=== PATIENT | male | born 1925 ===

== ENCOUNTER 2016-08-19 22:24 | Inpatient (IN) | payer MEDICARE, OTHER ==
[2016-08-19 22:24] VITALS: BMI 22.6
--- NOTE | 2016-08-19 23:52 | C.PDOC ---
History Of Present Illness Patient presents to the ER with a complaint of abdominal pain, nausea and vomiting since this afternoon. Daughter is at bedside. Denies fever, chills, chest pain or palpitations. Time Seen by Provider: 08/19/16 23:51 Chief Complaint (Nursing): Abdominal Pain History Per: Patient History/Exam Limitations: no limitations Onset/Duration Of Symptoms: Hrs Current Symptoms Are (Timing): Still Present Severity: Moderate Pain Scale Rating Of: 4 Location Of Pain/Discomfort: Diffuse Radiation Of Pain To:: None Quality Of Discomfort: Unable To Describe Associated Symptoms: Nausea, Vomiting. denies: Fever, Chills, Chest Pain, Other (Palpitations) Exacerbating Factors: None Alleviating Factors: None Recent travel outside of the [place]: No Past Medical History Reviewed: Historical Data, Nursing Documentation, Vital Signs Vital Signs: Last Vital Signs Temp 98.4 F 08/19/16 23:16 Pulse 57 L 08/19/16 23:16 Resp 20 08/19/16 23:16 BP 191/73 H 08/19/16 23:16 Pulse Ox 98 08/20/16 03:09 - Medical History PMH: Colonic Polyps, Diabetes, Emphysema, HTN, Hypercholesterolemia, Hypothyroidism, Chronic Kidney Disease (Renal insufficiency) Surgical History: Appendectomy, CABG (Triple Bypass in 1995), Endoscopy - [facility] Procedures ANGIOPLASTY OF OTHER NON-CORONARY VESSEL(S) (09/15/14) ATHERECTOMY OF OTHER NON-CORONARY VESSEL(S) (09/15/14) CLOSED ENDOSCOPIC BIOPSY OF LARGE INTESTINE (07/21/13) CONTRAST AORTOGRAM (09/15/14) CONTRAST ARTERIOGRAM-LEG (09/15/14) ESOPHAGOGASTRODUODENOSCOPY [EGD] W/CLOSED BIOPSY (09/15/14) INSEJ OF DRUG-ELUTING STENT(S) OF OTH PERIPHERAL VESSEL(S) (09/15/14) INSERT GASTRIC TUBE NEC (09/15/14) INSERTION OF ONE VASCULAR STENT (09/15/14) LOC EXC BONE LESION NEC (09/26/14) PACKED CELL TRANSFUSION (09/26/14) PROCEDURE ON SINGLE VESSEL (09/15/14) Family History: States: No Known Family Hx - Social History Hx Tobacco Use: No Hx Alcohol Use: No (quit at 64y/o) Hx Substance Use: No - Immunization History Hx Tetanus Toxoid Vaccination: Yes Hx Influenza Vaccination: Yes Hx Pneumococcal Vaccination: Yes Review Of Systems Constitutional: Negative for: Fever, Chills Cardiovascular: Negative for: Chest Pain, Palpitations Respiratory: Negative for: Cough, Shortness of Breath Gastrointestinal: Positive for: Nausea, Vomiting Genitourinary: Negative for: Dysuria, Incontinence, Hematuria Musculoskeletal: Negative for: Back Pain Skin: Negative for: Rash, Jaundice Physical Exam - Physical Exam Appears: Non-toxic Skin: Warm, Dry Oral Mucosa: Dry Throat: Normal, No Erythema, No Exudate Neck: Normal, Supple Chest: Symmetrical, No Tenderness Cardiovascular: Rhythm Regular, No Murmur Respiratory: No Rales, No Rhonchi, No Wheezing Gastrointestinal/Abdominal: Tenderness (Diffusely), Distention, Guarding ( Voluntary at RUQ), Other (Tympanic to percussion) Back: Normal Inspection, No CVA Tenderness, No Vertebral Tenderness, No Paraspinal Tenderness Extremity: Normal ROM (x4) Neurological/Psych: Oriented x3 ED Course And Treatment - Laboratory Results Result Diagrams: 08/20/16 00:15 08/20/16 00:15 ECG: Interpreted By Me, Viewed By Me ECG Rhythm: Sinus Rhythm (51), Nonspecific Changes O2 Sat by Pulse Oximetry: 98 Pulse Ox Interpretation: Normal Progress Note: CT of abd/pel, EKG and urinalysis ordered. Pepcid and zofran administered. spoke with family(hipaa compliant) about the diagnosis. spoke with global president and dr brito Disposition Discussed With : Pierre Crump Comment: accepted the pt on his service and took over the care at 3AM Doctor Will See Patient In The: Hospital Counseled Patient/Family Regarding: Studies Performed, Diagnosis - Disposition Disposition: HOSPITALIZED Disposition Time: 23:52 Condition: GUARDED - POA Present On Arrival: Poor Glycemic Control - Clinical Impression Clinical Impression: Abdominal pain, Intestinal obstruction, Incarcerated ventral hernia - Scribe Statement The provider has reviewed the documentation as recorded by the Scriblester Westfall All medical record entries made by the Scribe were at my direction and personally dictated by me. I have reviewed the chart and agree that the record accurately reflects my personal performance of the history, physical exam, medical decision making, and the department course for this patient. I have also personally directed, reviewed, and agree with the discharge instructions and disposition. Decision To Admit - Pt Status Changed To: Hospital Disposition Of: Inpatient - Admit Certification Admit to Inpatient:: After my assessment, the patient will require hospitalization for at least two midnights. This is because of the severity of symptoms shown, intensity of services needed, and/or the medical risk in this patient being treated as an outpatient. - InPatient: Physician Admission Certification:: After my assessment, the patient will require hospitalization for at least two midnights. This is because of the severity of symptoms shown, intensity of services needed, and/or the medical risk in this patient being treated as an outpatient. - . Bed Request Type: Regular Admitting Physician: Pierre Crump Patient Diagnosis: Abdominal pain, Intestinal obstruction, Incarcerated ventral hernia
[2016-08-20 00:22] LABS: BASO % 0.5 % (0.0-2.0); EOS % 0.1 % (0.0-4.0); HEMATOCRIT 40.5 % (35.0-51.0); LYMPH % 11.4 % (20.0-40.0); MEAN CORPUSCULAR HEMOGLOBIN 22.8 pg (27.0-31.0); MEAN CORPUSCULAR HGB CONC 31.2 g/dL (33.0-37.0); MEAN PLATELET VOLUME 8.2 fL (7.2-11.7); MONO # 0.3 K/uL (0.0-0.8); MONO % 3.1 % (0.0-10.0); RED CELL DISTRIBUTION WIDTH 17.3 % (11.5-14.5); WHITE BLOOD COUNT 9.1 K/uL (4.8-10.8)
[2016-08-20 00:30] LABS: CHLORIDE 102 mmol/L (98-107); POTASSIUM 4.2 mmol/L (3.6-5.2); SODIUM 138 mmol/L (132-148)
[2016-08-20 00:31] LABS: VENOUS BLOOD GAS BASE EXCESS -1.1 mmol/L (0.0-2.0); VENOUS BLOOD GAS PCO2 42 mmHg (40-60); VENOUS BLOOD PH 7.37 (7.32-7.43)
[2016-08-20 00:32] LABS: ALB/GLOB RATIO 1.2 (1.0-2.1); AST/SGOT 31 U/L (17-59); BILIRUBIN,TOTAL 0.9 mg/dL (0.2-1.3); CARBON DIOXIDE 23 mmol/L (22-30); GFR AFRICAN-AMERICAN > 60; TOTAL PROTEIN 7.2 g/dL (6.3-8.3)
[2016-08-20 00:33] LABS: ALKALINE PHOSPHATASE 116 U/L (38-126); ALT/SGPT 30 U/L (21-72); BLOOD UREA NITROGEN 27 mg/dL (9-20); CALCIUM 9.2 mg/dl (8.6-10.4); GLUCOSE,RANDOM 184 mg/dL (75-110)
[2016-08-20 00:37] LABS: RBC URINE 3 /hpf (0-3); URINE BILIRUBIN NEGATIVE (NEGATIVE); URINE BLOOD NEGATIVE (NEGATIVE); URINE COLOR Yellow (YELLOW); URINE GLUCOSE (UA) 1+ mg/dL (Normal); URINE KETONE 1+ mg/dL (NEGATIVE); URINE LEUKOCYTE ESTERASE NEG Leu/uL (Negative); URINE PROTEIN 2+ mg/dL (NEGATIVE); URINE UROBILINOGEN NORMAL mg/dL (0.2-1.0); WBC URINE < 1 /hpf (0-5)
[2016-08-20] MEDS ORDERED: Iohexol 350mg/ml 100 ML ONE (01:30)
--- NOTE | 2016-08-20 02:34 | CT ---
EXAM: CT Abdomen and Pelvis With Intravenous Contrast CLINICAL HISTORY: 89 years old, male; Pain; Abdominal pain; Patient HX: 9-18-16; Additional info: Abd pain, diffuse. Prior report faxed TECHNIQUE: Axial computed tomography images of the abdomen and pelvis with intravenous contrast. This CT exam was performed using one or more of the following dose reduction techniques: automated exposure control, adjustment of the mA and/or kV according to patient size, and/or use of iterative reconstruction technique. Coronal and sagittal reformatted images were created and reviewed. CONTRAST: 100 mL of [id number] administered intravenously. COMPARISON: No relevant prior studies available. FINDINGS: Lower thorax: There is mild bibasilar atelectasis, left greater than right. Pacemaker leads are noted in the right heart. There is coronary artery calcification. Visualized thoracic aorta is atherosclerotic and tortuous without aneurysm. Small hiatal hernia. ABDOMEN: Liver: There is a 1 CM cyst in the left dome of the liver. Gallbladder and bile ducts: There has been a cholecystectomy. No ductal dilation. Pancreas: Pancreas is somewhat atrophic and slightly fatty replaced. No ductal dilation. Spleen: The spleen is normal. Adrenals: The adrenal glands are normal. Kidneys and ureters: Both kidneys demonstrate multiple small cysts and subcentimeter hypodensities which are too small to adequately characterize. There is no evidence of hydronephrosis. Stomach and bowel: There is a small bowel obstruction with fluid-filled loops measuring up to 4.1 CM and fecalization just proximal to the obstruction. The obstruction is at the mid abdomen and appears to be in association with a ventral hernia. This is compatible with incarcerated ventral hernia. The stomach is normal. Mild diverticulosis is present in the sigmoid and descending colon. There is no evidence of diverticulitis. Appendix: There has been an appendectomy. PELVIS: Bladder: Bladder is decompressed. Reproductive: Prostate is borderline in size measuring 4.8 CM transverse by 4.4 CM AP. ABDOMEN and PELVIS: Intraperitoneal space: There is no evidence of free intraperitoneal fluid. There is no free intraperitoneal air. Bones/joints: There are sternal wires consistent with previous sternotomy incision. There are moderate degenerative changes present. There is mild diffuse osteopenia. No acute fracture. No dislocation. Soft tissues: Unremarkable. Vasculature: There is calcification of the aortic root. Abdominal aorta is densely atherosclerotic and tortuous without aneurysm. Lymph nodes: There is no evidence of lymphadenopathy. IMPRESSION: There is a small bowel obstruction with fluid-filled loops measuring up to 4.1 CM and fecalization just proximal to the obstruction. The obstruction is at the mid abdomen and appears to be in association with a ventral hernia. This is compatible with incarcerated ventral hernia.
[2016-08-20] MEDS ORDERED: Piperacillin/Tazobact 3.375 gm 100 ML IVPB STA (02:42)
[2016-08-20] MEDS ORDERED: Vancomycin 1 GM 1 GM/250 ML BAG IVPB STA (02:58)
[2016-08-20] MEDS ORDERED: Vancomycin 1 GM 1 GM/250 ML BAG IVPB ONE (03:17)
--- NOTE | 2016-08-20 04:58 | CP.PCM.CON ---
History of Present Illness - History of Present Illness History of Present Illness: Surgery: Dr. Rangel CC: Abd pain HPI: 89M w. pmh significant for HTN, CAD, DM, thyroid, emphysema, and SBOs presents w. acute onset abd pain. Pain began at 3 o'clock in the afternoon. Pain is diffuse but most prominent in epigastric area. Pain is intermittent. Pt reports nausea and dry heaving, but no actual vomiting. He had a BM early yesterday which was normal. But no BM/flatus since. Pt has been admitted in the past w. similar symptoms which have responded to conservative management. In ED pt had CT done which had findings suggestive of SBO 2/2 incarcerated ventral hernia. An NGT was placed in ED. PMH: HTN, CAD, DM, thyroid, emphysema PSH: AICD, triple bypass, hernia Meds: MAR reviewed NKDA Social: No ETOH/tobacco/drugs Fhx: Non-contributory Review of Systems - Review of Systems All systems: reviewed and no additional remarkable complaints except (HPI) Past Patient History - Tetanus Immunizations Tetanus Immunization: Unknown - Past Medical History & Family History Past Medical History?: Yes - Past Social History Smoking Status: Never Smoked - CARDIAC Hx Hypercholesterolemia: Yes Hx Hypertension: Yes - PULMONARY Hx Emphysema: Yes - NEUROLOGICAL Hx Neurological Disorder: No - HEENT Hx HEENT Problems: Yes Hx Cataracts: Yes Other/Comment: Laser cataract surgery - RENAL Hx Chronic Kidney Disease: Yes (Renal insufficiency) - ENDOCRINE/METABOLIC Hx Hypothyroidism: Yes - HEMATOLOGICAL/ONCOLOGICAL Hx Human Immunodeficiency Virus (HIV): No - INTEGUMENTARY Hx Dermatological Problems: No - GASTROINTESTINAL Hx Crohn's Disease: No Hx Diverticulitis: No Hx Gall Bladder Disease: No Hx Gastritis: No Hx Pancreatitis: No - GENITOURINARY/GYNECOLOGICAL Hx Genitourinary Disorders: No - PSYCHIATRIC Hx Substance Use: No - SURGICAL HISTORY Hx Appendectomy: Yes Hx Coronary Artery Bypass Graft: Yes (Triple Bypass in 1995) - ANESTHESIA Hx Anesthesia: Yes Hx Anesthesia Reactions: No Hx Malignant Hyperthermia: No Meds Allergies/Adverse Reactions: Allergies Allergy/AdvReac Type Severity Reaction Status Date / Time No Known Allergies Allergy Verified 09/26/14 10:47 - Medications Medications: Current Medications Hydromorphone HCl (Dilaudid) 0.5 mg IVP Q4H PRN PRN Reason: Pain, moderate (4-7) Sodium Chloride (Sodium Chloride 0.9%) 1,000 mls @ 100 mls/hr IV .Q10H ZEB Ondansetron HCl (Zofran Inj) 4 mg IVP Q4 PRN PRN Reason: Nausea/Vomiting Physical Exam - Constitutional Appears: Non-toxic, No Acute Distress - Head Exam Head Exam: ATRAUMATIC, NORMOCEPHALIC - Eye Exam Eye Exam: EOMI - ENT Exam ENT Exam: Mucous Membranes Moist, Normal External Ear Exam - Respiratory Exam Respiratory Exam: NORMAL BREATHING PATTERN. absent: Accessory Muscle Use, Respiratory Distress - GI/Abdominal Exam GI & Abdominal Exam: Hernia (ventral), Soft, Tenderness (diffuse, mild). absent : Distended, Firm, Guarding, Rebound, Rigid - Extremities Exam Extremities exam: Negative for: calf tenderness, pedal edema - Neurological Exam Neurological exam: Alert, Oriented x3 Results - Vital Signs Recent Vital Signs: Last Vital Signs Temp 97.8 F 08/20/16 04:51 Pulse 63 08/20/16 04:51 Resp 20 08/20/16 04:51 BP 142/65 08/20/16 04:51 Pulse Ox 98 08/20/16 04:51 - Labs Result Diagrams: 08/20/16 00:15 08/20/16 00:15 - Imaging and Cardiology CT scan - abdomen Status: Image reviewed by me, Report reviewed by me Assessment & Plan - Assessment and Plan (Free Text) Assessment: 89M w. SBO 2/2 incarcerated hernia -NPO -IVF -NGT low intermittent suction -pain meds -zofran -serial abd exams -will follow closely -d/w attending Juan Josemaitis PGY2
[2016-08-20] MEDS ORDERED: Sodium Chloride 0.9% 1,000 ML IV SCH (05:00)
[2016-08-20] MEDS: HYDROmorphone 0.5 mg/0.5 ml ISec IVP PRN ×3 (08:25→23:06)
--- NOTE | 2016-08-20 08:42 | CP.PCM.HP ---
History of Present Illness - History of Present Illness History of Present Illness: CC: Abd pain 89 y/po male with abd pain and n/v yesterday. He went to ER and was noted to have small bowel obstruction by CT. Present on Admission - Present on Admission Any Indicators Present on Admission: Yes History of DVT/PE: No History of Uncontrolled Diabetes: No Urinary Catheter: No Decubitus Ulcer Present: No Review of Systems - Review of Systems Systems not reviewed;Unavailable: Respiratory Distress - Constitutional Constitutional: absent: Frequent Falls, Headache - EENT Eyes: absent: Change in Vision Ears: absent: Ear Discharge Nose/Mouth/Throat: absent: Nasal Congestion, Nasal Discharge, Post Nasal Drip - Cardiovascular Cardiovascular: Dyspnea. absent: Chest Pain, Chest Pain at Rest, Chest Pain with Activity, Dyspnea on Exertion, Irregular Heart Rhythm, Orthopnea, Palpitations, Pedal Edema, Syncope - Respiratory Respiratory: Cough. absent: Hemoptysis, Dyspnea on Exertion, Chest Congestion - Gastrointestinal Gastrointestinal: Abdominal Pain, Bloating, Coffee Ground Emesis, Nausea. absent: Dysphagia, Excessive Flatus, Heartburn, Loose Stools - Genitourinary Genitourinary: absent: Dysuria, Nocturia, Urinary Urgency, Hx Renal/Bladder Calculi - Musculoskeletal Musculoskeletal: Abnormal Gait. absent: Back Pain, Loss of Height, Muscle Weakness, Numbness - Integumentary Integumentary: absent: Alopecia, Change in Hair, Rash, Sores, Striae - Neurological Neurological: absent: Confusion, Focal Weakness, Lack of Coordination, Radicular Pain, Syncope Past Patient History - Infectious Disease Hx of Infectious Diseases: None - Tetanus Immunizations Tetanus Immunization: Unknown - Past Medical History & Family History Past Medical History?: Yes - Past Social History Smoking Status: Never Smoked - CARDIAC Hx Hypercholesterolemia: Yes Hx Hypertension: Yes - PULMONARY Hx Emphysema: Yes - NEUROLOGICAL Hx Neurological Disorder: No - HEENT Hx HEENT Problems: Yes Hx Cataracts: Yes Other/Comment: Laser cataract surgery - RENAL Hx Chronic Kidney Disease: Yes (Renal insufficiency) - ENDOCRINE/METABOLIC Hx Hypothyroidism: Yes - HEMATOLOGICAL/ONCOLOGICAL Hx Human Immunodeficiency Virus (HIV): No - INTEGUMENTARY Hx Dermatological Problems: No - GASTROINTESTINAL Hx Crohn's Disease: No Hx Diverticulitis: No Hx Gall Bladder Disease: No Hx Gastritis: No Hx Pancreatitis: No - GENITOURINARY/GYNECOLOGICAL Hx Genitourinary Disorders: No - PSYCHIATRIC Hx Substance Use: No - SURGICAL HISTORY Hx Appendectomy: Yes Hx Coronary Artery Bypass Graft: Yes (Triple Bypass in 1995) - ANESTHESIA Hx Anesthesia: Yes Hx Anesthesia Reactions: No Hx Malignant Hyperthermia: No Meds Allergies/Adverse Reactions: Allergies Allergy/AdvReac Type Severity Reaction Status Date / Time No Known Allergies Allergy Verified 09/26/14 10:47 Physical Exam - Constitutional Appears: No Acute Distress - Eye Exam Eye Exam: Normal appearance - ENT Exam ENT Exam: Mucous Membranes Dry - Neck Exam Neck exam: Positive for: Full Rom. Negative for: Lymphadenopathy, Normal Inspection, Thyromegaly - Respiratory Exam Respiratory Exam: Clear to Auscultation Bilateral. absent: Rales, Rhonchi, Wheezes, Respiratory Distress - Cardiovascular Exam Cardiovascular Exam: REGULAR RHYTHM, +S1, +S2. absent: Gallop, JVD - GI/Abdominal Exam GI & Abdominal Exam: Distended, Soft, Tenderness. absent: Guarding, Mass, Rebound, Rigid Results - Vital Signs Recent Vital Signs: Last Vital Signs Temp 97.9 F 08/20/16 07:11 Pulse 65 08/20/16 07:11 Resp 20 08/20/16 07:11 BP 152/70 H 08/20/16 07:11 Pulse Ox 99 08/20/16 07:11 - Labs Result Diagrams: 08/20/16 00:15 08/20/16 00:15 - EKG Data EKG Interpreted by: Myself EKG shows normal: Sinus rhythm Rate: Bradycardia Assessment & Plan - Assessment and Plan (Free Text) Assessment: Small Intestinal Obstruction; Ventral Wall hernia; s/p Explore lap scar NIDDM, HTN, CAD Surgery on board Supportive care & will keep hydrated
[2016-08-20] MEDS: Dextrose 5%/0.9% NS 1,000 ML IV SCH ×2 (08:56→18:48)
--- NOTE | 2016-08-20 09:07 | RAD ---
HISTORY: s/p NGT COMPARISON: 09/15/2014 FINDINGS: LUNGS: No active pulmonary disease. PLEURA: For small left pleural effusion versus chronic pleural thickening. This is unchanged from prior examination. No right pleural effusion. No pneumothorax. CARDIOVASCULAR: Sternotomy wires. AICD. OSSEOUS STRUCTURES: No significant abnormalities. VISUALIZED UPPER ABDOMEN: Normal. OTHER FINDINGS: None. IMPRESSION: Questionable very small left pleural effusion versus chronic pleural thickening. No acute infiltrate.
[2016-08-20] MEDS: Nitroglycerin 0.1 mg/hr Top Patch TD SCH (10:01)
[2016-08-20] MEDS: (Novolog) Insulin Aspart, Recombinant 100 u/ml 10 ml vial SC SCH ×3 (11:42→21:33)
--- NOTE | 2016-08-20 17:19 | CP.PCM.CON ---
History of Present Illness - History of Present Illness History of Present Illness: This is an 89 year old man admitted 08/20/2016 with nausea, vomiting and abdominal pain. Patient is known to me from the office. The last colonoscopy was performed on which showed diverticulosis, a 5 mm polyp and prior low anterior resection. He was admitted 09/15/2014 with symptoms of nausea, vomiting and abdominal distention. CT scan at that time showed small bowel obstruction which resolved spontaneously. Because of bleeding per NG tube, EGD was performed 09/18/2014. This showed a hiatal hernia and two small gastric ulcers. Biopsy was negative for H. pylori. Patient presented to the ER today with complaints of recurrent abdominal pain, diffuse, for several hours, accompanied by nausea and vomiting. He denies having heartburn or difficulty swallowing. His last bowel movement was two days ago, and he has not been passing flatus. He denies having rectal bleeding. CT scan in the ER showed small bowel obstruction secondary to an incarcerated ventral hernia. Review of Systems - Review of Systems All systems: reviewed and no additional remarkable complaints except - Constitutional Constitutional: Weakness - EENT Eyes: absent: Change in Vision - Cardiovascular Cardiovascular: Dyspnea. absent: Chest Pain - Respiratory Respiratory: Cough. absent: Hemoptysis - Gastrointestinal Gastrointestinal: Abdominal Pain, Constipation, Nausea, Vomiting. absent: Diarrhea, Dysphagia, Heartburn - Genitourinary Genitourinary: absent: Dysuria Past Patient History - Infectious Disease Hx of Infectious Diseases: None - Tetanus Immunizations Tetanus Immunization: Unknown - Past Medical History & Family History Past Medical History?: Yes - Past Social History Smoking Status: Never Smoked - CARDIAC Hx Hypercholesterolemia: Yes Hx Hypertension: Yes - PULMONARY Hx Emphysema: Yes - NEUROLOGICAL Hx Neurological Disorder: No - HEENT Hx HEENT Problems: Yes Hx Cataracts: Yes Other/Comment: Laser cataract surgery - RENAL Hx Chronic Kidney Disease: Yes (Renal insufficiency) - ENDOCRINE/METABOLIC Hx Hypothyroidism: Yes - HEMATOLOGICAL/ONCOLOGICAL Hx Human Immunodeficiency Virus (HIV): No - INTEGUMENTARY Hx Dermatological Problems: No - GASTROINTESTINAL Hx Crohn's Disease: No Hx Diverticulitis: No Hx Gall Bladder Disease: No Hx Gastritis: No Hx Pancreatitis: No - GENITOURINARY/GYNECOLOGICAL Hx Genitourinary Disorders: No - PSYCHIATRIC Hx Substance Use: No - SURGICAL HISTORY Hx Appendectomy: Yes Hx Coronary Artery Bypass Graft: Yes (Triple Bypass in 1995) - ANESTHESIA Hx Anesthesia: Yes Hx Anesthesia Reactions: No Hx Malignant Hyperthermia: No Meds Allergies/Adverse Reactions: Allergies Allergy/AdvReac Type Severity Reaction Status Date / Time No Known Allergies Allergy Verified 09/26/14 10:47 - Medications Medications: Current Medications Hydromorphone HCl (Dilaudid) 0.5 mg IVP Q4H PRN PRN Reason: Pain, moderate (4-7) Last Admin: 08/20/16 12:14 Dose: 0.5 mg Dextrose/Sodium Chloride (Dextrose 5%/0.9% Ns 1000 Ml) 1,000 mls @ 100 mls/hr IV .Q10H [facility] Last Admin: 08/20/16 08:56 Dose: 100 mls/hr Insulin Aspart (Novolog) 0 unit SC ACHS ZEB PRN Reason: Protocol Last Admin: 08/20/16 16:46 Dose: 3 unit Nitroglycerin (Nitro-Dur 0.1 Mg/Hr Patch) 1 patch TD DAILY [facility] Last Admin: 08/20/16 10:01 Dose: 1 patch Ondansetron HCl (Zofran Inj) 4 mg IVP Q4 PRN PRN Reason: Nausea/Vomiting Pantoprazole Sodium (Protonix Inj) 40 mg IVP DAILY [facility] Last Admin: 08/20/16 09:09 Dose: 40 mg Pneumococcal Polyvalent Vaccine (Pneumovax 23 Vaccine) 0.5 ml IM .ONCE ONE Stop: 08/22/16 10:01 Physical Exam - Constitutional Appears: No Acute Distress - Head Exam Head Exam: ATRAUMATIC, NORMOCEPHALIC - Neck Exam Neck exam: Negative for: Lymphadenopathy, Thyromegaly - Respiratory Exam Respiratory Exam: NORMAL BREATHING PATTERN. absent: Rales, Rhonchi, Wheezes - Cardiovascular Exam Cardiovascular Exam: REGULAR RHYTHM, +S1, +S2. absent: Gallop, Rubs, Systolic Murmur - GI/Abdominal Exam GI & Abdominal Exam: Normal Bowel Sounds, Soft. absent: Mass, Organomegaly, Tenderness - Rectal Exam Rectal Exam: Deferred - Extremities Exam Extremities exam: Negative for: calf tenderness, pedal edema Results - Vital Signs Recent Vital Signs: Last Vital Signs Temp 98 F 08/20/16 16:00 Pulse 67 08/20/16 16:00 Resp 20 08/20/16 16:00 BP 141/53 L 08/20/16 16:00 Pulse Ox 99 08/20/16 16:00 - Labs Result Diagrams: 08/20/16 00:15 08/20/16 00:15 Labs: Laboratory Results - last 24 hr 08/20/16 08/20/16 08/20/16 11:07 11:15 16:29 POC Glucose (mg/dL) 214 H 206 H Procalcitonin < 0.05 L Assessment & Plan (1) Incarcerated ventral hernia Assessment and Plan: Patient presented with abdominal pain, nausea, vomiting, and evidence of SBO and ventral hernia on CT scan. Agree with NG suction and observation. Recommend surgery follow up. Status: Acute
[2016-08-21] MEDS: Dextrose 5%/0.9% NS 1,000 ML IV SCH ×3 (05:18→17:03)
[2016-08-21] MEDS: HYDROmorphone 0.5 mg/0.5 ml ISec IVP PRN ×3 (05:46→19:03)
[2016-08-21] MEDS: (Novolog) Insulin Aspart, Recombinant 100 u/ml 10 ml vial SC SCH ×4 (08:12→22:00)
--- NOTE | 2016-08-21 08:34 | CP.PCM.PN ---
Subjective - Date & Time of Evaluation Date of Evaluation: 08/21/16 Time of Evaluation: 08:15 - Subjective Subjective: Pt want to try to defecate; Abdomen slight increase in distension? No CP, no SOB, no edema; no flatus x days Objective - Vital Signs/Intake and Output Vital Signs (last 24 hours): Temp Pulse Resp BP Pulse Ox 98.3 F 60 20 116/63 96 08/21/16 00:00 08/21/16 00:00 08/21/16 00:00 08/21/16 00:00 08/21/16 00:00 Intake and Output: 08/21/16 08/21/16 06:59 18:59 Intake Total 1600 Output Total 70 Balance 1530 - Medications Medications: Current Medications Hydromorphone HCl (Dilaudid) 0.5 mg IVP Q4H PRN PRN Reason: Pain, moderate (4-7) Last Admin: 08/21/16 05:46 Dose: 0.5 mg Dextrose/Sodium Chloride (Dextrose 5%/0.9% Ns 1000 Ml) 1,000 mls @ 100 mls/hr IV .Q10H [facility] Last Admin: 08/21/16 05:18 Dose: 100 mls/hr Insulin Aspart (Novolog) 0 unit SC ACHS ZEB PRN Reason: Protocol Last Admin: 08/21/16 08:12 Dose: Not Given Nitroglycerin (Nitro-Dur 0.1 Mg/Hr Patch) 1 patch TD DAILY [facility] Last Admin: 08/20/16 10:01 Dose: 1 patch Ondansetron HCl (Zofran Inj) 4 mg IVP Q4 PRN PRN Reason: Nausea/Vomiting Pantoprazole Sodium (Protonix Inj) 40 mg IVP DAILY [facility] Last Admin: 08/20/16 09:09 Dose: 40 mg Pneumococcal Polyvalent Vaccine (Pneumovax 23 Vaccine) 0.5 ml IM .ONCE ONE Stop: 08/22/16 10:01 - Labs Labs: PT 11.5 SECONDS (9.7-12.2) 08/20/16 00:15 INR 1.0 08/20/16 00:15 APTT 33 SECONDS (21-34) 08/20/16 00:15 - Constitutional Appears: No Acute Distress - Eye Exam Eye Exam: Normal appearance - ENT Exam ENT Exam: Mucous Membranes Moist - Neck Exam Neck Exam: Full ROM. absent: Lymphadenopathy - Respiratory Exam Respiratory Exam: Decreased Breath Sounds, Rhonchi, NORMAL BREATHING PATTERN. absent: Rales, Wheezes - Cardiovascular Exam Cardiovascular Exam: REGULAR RHYTHM, +S1, +S2, Murmur. absent: Gallop, JVD - GI/Abdominal Exam GI & Abdominal Exam: Soft. absent: Tenderness, Mass - Extremities Exam Extremities Exam: Full ROM, Normal Capillary Refill. absent: Calf Tenderness, Joint Swelling, Pedal Edema Assessment and Plan - Assessment and Plan (Free Text) Assessment: Small bowel obstruction; Vent wall hernia NIDDM, Hypothyroidism, CAD Surgical f/up Cont supportive care
[2016-08-21] MEDS: Nitroglycerin 0.1 mg/hr Top Patch TD SCH (09:05)
[2016-08-21 11:50] LABS: CHLORIDE 108 mmol/L (98-107); SODIUM 142 mmol/L (132-148)
[2016-08-21 11:51] LABS: POTASSIUM 3.7 mmol/L (3.6-5.2)
[2016-08-21 11:52] LABS: AST/SGOT 27 U/L (17-59); BILIRUBIN,TOTAL 0.6 mg/dL (0.2-1.3); GFR AFRICAN-AMERICAN > 60
[2016-08-21 11:53] LABS: ALB/GLOB RATIO 1.2 (1.0-2.1); ALKALINE PHOSPHATASE 88 U/L (38-126); ALT/SGPT 21 U/L (21-72); BLOOD UREA NITROGEN 19 mg/dL (9-20); CALCIUM 8.1 mg/dl (8.6-10.4); CARBON DIOXIDE 25 mmol/L (22-30); GLUCOSE,RANDOM 194 mg/dL (75-110); TOTAL PROTEIN 6.6 g/dL (6.3-8.3)
[2016-08-21 11:57] LABS: MEAN CELL VOLUME 73.2 fL (80.0-94.0); MEAN CORPUSCULAR HEMOGLOBIN 22.6 pg (27.0-31.0); MEAN CORPUSCULAR HGB CONC 30.9 g/dL (33.0-37.0); MEAN PLATELET VOLUME 8.9 fL (7.2-11.7); RED CELL DISTRIBUTION WIDTH 17.5 % (11.5-14.5); WHITE BLOOD COUNT 8.2 K/uL (4.8-10.8)
--- NOTE | 2016-08-21 14:23 | CARD ---
APPROVED REPORT EKG Measurement Heart [id number] <Conclusion> Sinus bradycardia Otherwise normal ECG
--- NOTE | 2016-08-21 14:49 | CP.PCM.PN ---
Subjective - Date & Time of Evaluation Date of Evaluation: 08/21/16 Time of Evaluation: 14:46 - Subjective Subjective: Patient states that the abdominal pain has improved. He denies having nausea or vomiting. He has not passed any stool or flatus per rectum. Objective - Vital Signs/Intake and Output Vital Signs (last 24 hours): Temp Pulse Resp BP Pulse Ox 97.6 F 71 97 H 189/82 H 97 08/21/16 08:00 08/21/16 08:00 08/21/16 08:00 08/21/16 08:00 08/21/16 08:00 Intake and Output: 08/21/16 08/21/16 06:59 18:59 Intake Total 1600 Output Total 70 500 Balance 1530 -500 - Medications Medications: Current Medications Hydromorphone HCl (Dilaudid) 0.5 mg IVP Q4H PRN PRN Reason: Pain, moderate (4-7) Last Admin: 08/21/16 11:38 Dose: 0.5 mg Dextrose/Sodium Chloride (Dextrose 5%/0.9% Ns 1000 Ml) 1,000 mls @ 100 mls/hr IV .Q10H [facility] Last Admin: 08/21/16 14:27 Dose: 100 mls/hr Insulin Aspart (Novolog) 0 unit SC ACHS [facility] PRN Reason: Protocol Last Admin: 08/21/16 11:39 Dose: 2 unit Nitroglycerin (Nitro-Dur 0.1 Mg/Hr Patch) 1 patch TD DAILY [facility] Last Admin: 08/21/16 09:05 Dose: 1 patch Ondansetron HCl (Zofran Inj) 4 mg IVP Q4 PRN PRN Reason: Nausea/Vomiting Pantoprazole Sodium (Protonix Inj) 40 mg IVP DAILY [facility] Last Admin: 08/21/16 09:05 Dose: 40 mg Pneumococcal Polyvalent Vaccine (Pneumovax 23 Vaccine) 0.5 ml IM .ONCE ONE Stop: 08/22/16 10:01 - Labs Labs: 08/21/16 11:31 08/21/16 11:31 PT 11.5 SECONDS (9.7-12.2) 08/20/16 00:15 INR 1.0 08/20/16 00:15 APTT 33 SECONDS (21-34) 08/20/16 00:15 - Constitutional Appears: No Acute Distress - Head Exam Head Exam: NORMAL INSPECTION - Eye Exam Eye Exam: EOMI, PERRL - Neck Exam Neck Exam: absent: Lymphadenopathy, Thyromegaly - Respiratory Exam Respiratory Exam: NORMAL BREATHING PATTERN. absent: Rales, Rhonchi, Wheezes - GI/Abdominal Exam GI & Abdominal Exam: Soft, Normal Bowel Sounds. absent: Tenderness, Organomegaly Additional comments: 6 cm incisional hernia, reducible - Rectal Exam Rectal Exam: Deferred - Extremities Exam Extremities Exam: absent: Calf Tenderness, Pedal Edema Assessment and Plan (1) Incarcerated ventral hernia Assessment & Plan: Patient denies having abdominal pain, nausea or vomiting. NG tube remains in place. There is no tenderness on abdominal exam. He still has not passed any stool or flatus. Will repeat abdominal xray. Status: Acute
--- NOTE | 2016-08-21 16:21 | CP.PCM.PN ---
Subjective - Date & Time of Evaluation Date of Evaluation: 08/21/16 Time of Evaluation: 16:17 - Subjective Subjective: Surgery: Dr. Rangel Pt seen and examined. Resting comfortably in bed. Pain persists but is improved compared to yesterday. No N/V. Still no flatus/BM. Objective - Vital Signs/Intake and Output Vital Signs (last 24 hours): Temp Pulse Resp BP Pulse Ox 97.6 F 71 97 H 189/82 H 97 08/21/16 08:00 08/21/16 08:00 08/21/16 08:00 08/21/16 08:00 08/21/16 08:00 Intake and Output: 08/21/16 08/21/16 06:59 18:59 Intake Total 1600 Output Total 70 500 Balance 1530 -500 - Medications Medications: Current Medications Hydromorphone HCl (Dilaudid) 0.5 mg IVP Q4H PRN PRN Reason: Pain, moderate (4-7) Last Admin: 08/21/16 11:38 Dose: 0.5 mg Dextrose/Sodium Chloride (Dextrose 5%/0.9% Ns 1000 Ml) 1,000 mls @ 100 mls/hr IV .Q10H [facility] Last Admin: 08/21/16 14:27 Dose: 100 mls/hr Insulin Aspart (Novolog) 0 unit SC ACHS [facility] PRN Reason: Protocol Last Admin: 08/21/16 11:39 Dose: 2 unit Nitroglycerin (Nitro-Dur 0.1 Mg/Hr Patch) 1 patch TD DAILY [facility] Last Admin: 08/21/16 09:05 Dose: 1 patch Ondansetron HCl (Zofran Inj) 4 mg IVP Q4 PRN PRN Reason: Nausea/Vomiting Pantoprazole Sodium (Protonix Inj) 40 mg IVP DAILY [facility] Last Admin: 08/21/16 09:05 Dose: 40 mg Pneumococcal Polyvalent Vaccine (Pneumovax 23 Vaccine) 0.5 ml IM .ONCE ONE Stop: 08/22/16 10:01 - Labs Labs: 08/21/16 11:31 08/21/16 11:31 PT 11.5 SECONDS (9.7-12.2) 08/20/16 00:15 INR 1.0 08/20/16 00:15 APTT 33 SECONDS (21-34) 08/20/16 00:15 - Constitutional Appears: Non-toxic, No Acute Distress - Head Exam Head Exam: ATRAUMATIC, NORMOCEPHALIC - Eye Exam Eye Exam: EOMI - ENT Exam ENT Exam: Mucous Membranes Moist, Normal External Ear Exam - Neck Exam Neck Exam: Full ROM - Respiratory Exam Respiratory Exam: NORMAL BREATHING PATTERN. absent: Accessory Muscle Use, Respiratory Distress - GI/Abdominal Exam GI & Abdominal Exam: Soft, Hernia (reducible). absent: Distended, Firm, Guarding, Rigid, Tenderness, Rebound - Extremities Exam Extremities Exam: absent: Calf Tenderness, Pedal Edema - Neurological Exam Neurological Exam: Alert, Awake, Oriented x3 Assessment and Plan - Assessment and Plan (Free Text) Assessment: 89M w. SBO -NGT 170cc/24hr bilious continue to monitor -serial abd exams -continue to monitor bowel fxn -keep NPO -d/w attending Zemaitis PGY2
--- NOTE | 2016-08-21 16:33 | RAD ---
HISTORY: Follow up SBO COMPARISON: No prior. FINDINGS: BOWEL: There are dilated small bowel loops seen centrally within the abdomen. There is gas seen throughout the colon. The findings may reflect mechanical small bowel obstruction. A nasogastric tube is seen in the left upper quadrant of the abdomen. There are surgical clips in the right upper quadrant of the abdomen. BONES: Normal. OTHER FINDINGS: An AICD is noted. IMPRESSION: Findings concerning for mechanical small-bowel obstruction. Nasogastric tube noted.
[2016-08-21 16:40] VITALS: RESP 20
[2016-08-22] MEDS: HYDROmorphone 0.5 mg/0.5 ml ISec IVP PRN ×5 (00:26→18:31)
[2016-08-22] MEDS: Dextrose 5%/0.9% NS 1,000 ML IV SCH ×2 (02:21→10:45)
[2016-08-22] MEDS: (Novolog) Insulin Aspart, Recombinant 100 u/ml 10 ml vial SC SCH ×4 (07:30→22:20)
--- NOTE | 2016-08-22 08:04 | CP.PCM.PN ---
Subjective - Date & Time of Evaluation Date of Evaluation: 08/22/16 Time of Evaluation: 07:55 - Subjective Subjective: Pt has flatus & feels better. No CP, no SOB, no cough, no n/v no dysuria, no freq Objective - Vital Signs/Intake and Output Vital Signs (last 24 hours): Temp Pulse Resp BP Pulse Ox 98.6 F 67 20 161/72 H 97 08/22/16 00:00 08/22/16 00:00 08/22/16 00:00 08/22/16 00:00 08/22/16 00:00 Intake and Output: 08/22/16 08/22/16 06:59 18:59 Intake Total 1600 Output Total 1360 Balance 240 - Medications Medications: Current Medications Hydromorphone HCl (Dilaudid) 0.5 mg IVP Q4H PRN PRN Reason: Pain, moderate (4-7) Last Admin: 08/22/16 00:26 Dose: 0.5 mg Dextrose/Sodium Chloride (Dextrose 5%/0.9% Ns 1000 Ml) 1,000 mls @ 100 mls/hr IV .Q10H [facility] Last Admin: 08/22/16 02:21 Dose: 100 mls/hr Insulin Aspart (Novolog) 0 unit SC ACHS [facility] PRN Reason: Protocol Last Admin: 08/21/16 22:00 Dose: Not Given Nitroglycerin (Nitro-Dur 0.1 Mg/Hr Patch) 1 patch TD DAILY [facility] Last Admin: 08/21/16 09:05 Dose: 1 patch Ondansetron HCl (Zofran Inj) 4 mg IVP Q4 PRN PRN Reason: Nausea/Vomiting Pantoprazole Sodium (Protonix Inj) 40 mg IVP DAILY [facility] Last Admin: 08/21/16 09:05 Dose: 40 mg Pneumococcal Polyvalent Vaccine (Pneumovax 23 Vaccine) 0.5 ml IM .ONCE ONE Stop: 08/22/16 10:01 - Labs Labs: 08/21/16 11:31 08/21/16 11:31 PT 11.5 SECONDS (9.7-12.2) 08/20/16 00:15 INR 1.0 08/20/16 00:15 APTT 33 SECONDS (21-34) 08/20/16 00:15 - Constitutional Appears: No Acute Distress - Eye Exam Eye Exam: Normal appearance - ENT Exam ENT Exam: Mucous Membranes Moist - Neck Exam Neck Exam: Full ROM. absent: Lymphadenopathy, Thyromegaly - Respiratory Exam Respiratory Exam: Decreased Breath Sounds. absent: Rales, Rhonchi, Wheezes - Cardiovascular Exam Cardiovascular Exam: REGULAR RHYTHM, +S1, +S2, Murmur. absent: Gallop, JVD - GI/Abdominal Exam GI & Abdominal Exam: Soft, Tenderness. absent: Mass - Extremities Exam Extremities Exam: Full ROM, Normal Capillary Refill. absent: Calf Tenderness, Joint Swelling, Pedal Edema Assessment and Plan - Assessment and Plan (Free Text) Plan: Small intestinal obstruction; Vent Wall hernia NIDDM, CAD, hypothyroidism Cont care; feeding as per Surgery
[2016-08-22] MEDS: Nitroglycerin 0.1 mg/hr Top Patch TD SCH (09:12)
--- NOTE | 2016-08-22 09:31 | CP.PCM.PN ---
Subjective - Date & Time of Evaluation Date of Evaluation: 08/22/16 Time of Evaluation: 09:30 - Subjective Subjective: Gen Sx: Dr Rangel Pt S&E. States he is feeling better. Now passing flatus. NGT with another 100cc of bile overnight. Abdomen less distended. Denies N/V, F/C Objective - Vital Signs/Intake and Output Vital Signs (last 24 hours): Temp Pulse Resp BP Pulse Ox 98.6 F 67 20 161/72 H 97 08/22/16 00:00 08/22/16 00:00 08/22/16 00:00 08/22/16 00:00 08/22/16 00:00 Intake and Output: 08/22/16 08/22/16 06:59 18:59 Intake Total 1600 Output Total 1360 Balance 240 - Medications Medications: Current Medications Hydromorphone HCl (Dilaudid) 0.5 mg IVP Q4H PRN PRN Reason: Pain, moderate (4-7) Last Admin: 08/22/16 09:01 Dose: 0.5 mg Dextrose/Sodium Chloride (Dextrose 5%/0.9% Ns 1000 Ml) 1,000 mls @ 100 mls/hr IV .Q10H [facility] Last Admin: 08/22/16 02:21 Dose: 100 mls/hr Insulin Aspart (Novolog) 0 unit SC ACHS [facility] PRN Reason: Protocol Last Admin: 08/22/16 07:30 Dose: 1 unit Nitroglycerin (Nitro-Dur 0.1 Mg/Hr Patch) 1 patch TD DAILY [facility] Last Admin: 08/22/16 09:12 Dose: 1 patch Ondansetron HCl (Zofran Inj) 4 mg IVP Q4 PRN PRN Reason: Nausea/Vomiting Pantoprazole Sodium (Protonix Inj) 40 mg IVP DAILY [facility] Last Admin: 08/22/16 09:05 Dose: 40 mg Pneumococcal Polyvalent Vaccine (Pneumovax 23 Vaccine) 0.5 ml IM .ONCE ONE Stop: 08/22/16 10:01 Last Admin: 08/22/16 09:08 Dose: Not Given - Labs Labs: 08/21/16 11:31 08/21/16 11:31 PT 11.5 SECONDS (9.7-12.2) 08/20/16 00:15 INR 1.0 08/20/16 00:15 APTT 33 SECONDS (21-34) 08/20/16 00:15 - Constitutional Appears: Non-toxic, No Acute Distress - Respiratory Exam Respiratory Exam: absent: Accessory Muscle Use, Respiratory Distress - Cardiovascular Exam Cardiovascular Exam: REGULAR RHYTHM - GI/Abdominal Exam GI & Abdominal Exam: Distended (but improved), Soft, Hernia (large and reducible ). absent: Guarding, Tenderness, Mass - Neurological Exam Neurological Exam: Alert, Awake, Oriented x3 - Psychiatric Exam Psychiatric exam: Normal Affect, Normal Mood - Skin Skin Exam: Normal Color, Warm Assessment and Plan - Assessment and Plan (Free Text) Assessment: 89M with significant comorbities w/ reducible ventral hernia and SBO; resolving Plan: Abd Xray will trial NGT clamp will follow closely d/w Dr Juan Carlos Queen, PGY2
[2016-08-22] MEDS ORDERED: Pneumococcal 23-Valent Vaccine IM ONE (10:00)
--- NOTE | 2016-08-22 11:16 | RAD ---
Abdomen two views History: Evaluate for small bowel obstruction. Comparison: 08/21/2016 Findings: NG tube coiled in the proximal stomach with the distal tip retracted extending into the distal esophagus. Repositioning may be helpful. Surgical clips in the right upper abdomen. Progressive dilatation of small bowel loops now prominent measuring up to 4.1 centimeters. Some air seen within the colon. Degenerative changes in the spine and hips. Relative lucency at the right lung field which may be related to over penetration. Correlation with chest x-ray is recommended to exclude pneumothorax. Moderate left pleural effusion which appears layering. Heterotopic calcifications adjacent to the bilateral proximal femurs. Extensive vascular calcifications. Impression: Persistent small bowel obstruction. Relative lucency at the right nola thorax for which pneumothorax can't be excluded. Correlation with chest x-ray is recommended. NG tube coiled in the proximal stomach with the distal tip retracted extending into the distal esophagus. Repositioning may be helpful. Additional findings as above.
[2016-08-22] MEDS: Nitroglycerin 0.2 mg/hr Top Patch TD SCH (12:00)
[2016-08-22 12:06] LABS: CHLORIDE 106 mmol/L (98-107); SODIUM 141 mmol/L (132-148)
[2016-08-22 12:07] LABS: POTASSIUM 3.4 mmol/L (3.6-5.2)
[2016-08-22 12:09] LABS: CARBON DIOXIDE 26 mmol/L (22-30); GFR AFRICAN-AMERICAN > 60
[2016-08-22 12:10] LABS: BLOOD UREA NITROGEN 11 mg/dL (9-20); CALCIUM 7.8 mg/dl (8.6-10.4); GLUCOSE,RANDOM 199 mg/dL (75-110)
--- NOTE | 2016-08-22 19:06 | CP.PCM.PN ---
Subjective - Date & Time of Evaluation Date of Evaluation: 08/22/16 Time of Evaluation: 19:04 - Subjective Subjective: Patient states that the pain is much better, intermittent, lasting only a few minutes at a time. He is passing flatus, but has not had a bowel movement. He denies having nausea and vomiting. Objective - Vital Signs/Intake and Output Vital Signs (last 24 hours): Temp Pulse Resp BP Pulse Ox 98.5 F 68 20 187/81 H 98 08/22/16 15:00 08/22/16 16:21 08/22/16 15:00 08/22/16 16:21 08/22/16 16:21 Intake and Output: 08/22/16 08/23/16 18:59 06:59 Intake Total 1100 Output Total 1300 Balance -200 - Medications Medications: Current Medications Hydromorphone HCl (Dilaudid) 0.5 mg IVP Q4H PRN PRN Reason: Pain, moderate (4-7) Last Admin: 08/22/16 18:31 Dose: 0.5 mg Dextrose/Sodium Chloride (Dextrose 5%/0.9% Ns 1000 Ml) 1,000 mls @ 100 mls/hr IV .Q10H [facility] Last Admin: 08/22/16 10:45 Dose: 100 mls/hr Insulin Aspart (Novolog) 0 unit SC ACHS [facility] PRN Reason: Protocol Last Admin: 08/22/16 17:30 Dose: 2 unit Nitroglycerin (Nitro-Dur 0.2 Mg/Hr Patch) [address] [facility] Last Admin: 08/22/16 12:00 Dose: 1 patch Ondansetron HCl (Zofran Inj) 4 mg IVP Q4 PRN PRN Reason: Nausea/Vomiting Pantoprazole Sodium (Protonix Inj) [address] [facility] Last Admin: 08/22/16 09:05 Dose: 40 mg - Labs Labs: 08/21/16 11:31 08/22/16 11:34 PT 11.5 SECONDS (9.7-12.2) 08/20/16 00:15 INR 1.0 08/20/16 00:15 APTT 33 SECONDS (21-34) 08/20/16 00:15 - Constitutional Appears: No Acute Distress - Head Exam Head Exam: ATRAUMATIC, NORMOCEPHALIC - Neck Exam Neck Exam: absent: Lymphadenopathy, Thyromegaly - Respiratory Exam Respiratory Exam: NORMAL BREATHING PATTERN. absent: Rales, Rhonchi, Wheezes - Cardiovascular Exam Cardiovascular Exam: REGULAR RHYTHM, +S1, +S2. absent: Gallop, Rubs, Murmur - GI/Abdominal Exam GI & Abdominal Exam: Distended, Soft, Hernia, Normal Bowel Sounds. absent: Tenderness, Organomegaly Additional comments: 6 cm ventral hernia, reducible - Extremities Exam Extremities Exam: absent: Calf Tenderness, Pedal Edema Assessment and Plan (1) Incarcerated ventral hernia Assessment & Plan: Patient feels better. The NG tube has been removed, and he is tolerating clear liquids. Will observe as the diet is advanced. Status: Acute
[2016-08-22] MEDS: Enoxaparin 30 mg Syringe SC SCH (22:17)
[2016-08-23] MEDS ORDERED: Levothyroxine 50 MCG TAB PO SCH (06:30)
[2016-08-23] MEDS: Fluticasone-Salmeterol 250-50mcg Diskus INH SCH ×2 (07:47→19:44)
[2016-08-23] MEDS: Dextrose 5%/0.9% NS 1,000 ML IV SCH (08:08)
[2016-08-23] MEDS: Enoxaparin 30 mg Syringe SC SCH (09:07)
[2016-08-23] MEDS: Nitroglycerin 0.2 mg/hr Top Patch TD SCH (09:11)
[2016-08-23] MEDS: (Novolog) Insulin Aspart, Recombinant 100 u/ml 10 ml vial SC SCH ×3 (09:11→16:30)
--- NOTE | 2016-08-23 10:07 | CP.PCM.PN ---
Subjective - Date & Time of Evaluation Date of Evaluation: 08/23/16 Time of Evaluation: 10:04 - Subjective Subjective: Surgery: Dr. Rangel Pt seen and examined. Pain improved. Tolerating liquid diet. No N/V. Passing flatus. No BM. Objective - Vital Signs/Intake and Output Vital Signs (last 24 hours): Temp Pulse Resp BP Pulse Ox 98 F 80 20 154/85 H 97 08/23/16 07:24 08/23/16 07:48 08/23/16 07:24 08/23/16 09:06 08/23/16 07:24 Intake and Output: 08/23/16 08/23/16 06:59 18:59 Intake Total 1160 Balance 1160 - Medications Medications: Current Medications Carvedilol (Coreg) 12.5 mg PO BID [facility] Last Admin: 08/23/16 09:06 Dose: 12.5 mg Enoxaparin Sodium (Lovenox) 30 mg SC Q12 [facility] Last Admin: 08/23/16 09:07 Dose: 30 mg Finasteride (Proscar) 5 mg PO DAILY [facility] Last Admin: 08/23/16 09:11 Dose: 5 mg Hydromorphone HCl (Dilaudid) 0.5 mg IVP Q4H PRN PRN Reason: Pain, moderate (4-7) Last Admin: 08/22/16 18:31 Dose: 0.5 mg Insulin Aspart (Novolog) 0 unit SC ACHS [facility] PRN Reason: Protocol Last Admin: 08/23/16 09:11 Dose: 2 unit Levothyroxine Sodium (Synthroid) 50 mcg PO DAILY@0630 [facility] Last Admin: 08/23/16 05:49 Dose: 50 mcg Losartan Potassium (Cozaar) 50 mg PO DAILY PRN PRN Reason: Systolic Blood Pressure > 160 Nitroglycerin (Nitro-Dur 0.2 Mg/Hr Patch) 1 patch TD DAILY [facility] Last Admin: 08/23/16 09:11 Dose: 1 patch Ondansetron HCl (Zofran Inj) 4 mg IVP Q4 PRN PRN Reason: Nausea/Vomiting Pantoprazole Sodium (Protonix Inj) 40 mg IVP DAILY [facility] Last Admin: 08/23/16 09:05 Dose: 40 mg Fluticasone/Salmeterol (Advair Diskus 250/50) 1 puff INH RQ12 [facility] Last Admin: 08/23/16 07:47 Dose: 1 puff - Labs Labs: 08/21/16 11:31 08/22/16 11:34 PT 11.5 SECONDS (9.7-12.2) 08/20/16 00:15 INR 1.0 08/20/16 00:15 APTT 33 SECONDS (21-34) 08/20/16 00:15 - Constitutional Appears: Non-toxic, No Acute Distress - Head Exam Head Exam: ATRAUMATIC, NORMOCEPHALIC - Eye Exam Eye Exam: EOMI - ENT Exam ENT Exam: Mucous Membranes Moist - Neck Exam Neck Exam: Full ROM - Respiratory Exam Respiratory Exam: NORMAL BREATHING PATTERN. absent: Accessory Muscle Use, Respiratory Distress - GI/Abdominal Exam GI & Abdominal Exam: Soft, Hernia (reducible ). absent: Distended, Firm, Guarding, Rigid, Tenderness, Rebound - Neurological Exam Neurological Exam: Alert, Awake, Oriented x3 Assessment and Plan - Assessment and Plan (Free Text) Assessment: 89M w. SBO, resolving -Diet advanced to regular -Monitor bowel fxn -clear for D/C from surgical standpoint if pt has BM -d/w attending Zemaitis PGY2
--- NOTE | 2016-08-23 11:21 | CP.PCM.PN ---
Subjective - Date & Time of Evaluation Date of Evaluation: 08/23/16 Time of Evaluation: 11:19 - Subjective Subjective: Covering dr Lawler CC: SBO follow up No BM, tolerted clear liquids and advanced to so;lids. Denies nausea, vomiting, abdominal pain. + Flatus Objective - Vital Signs/Intake and Output Vital Signs (last 24 hours): Temp Pulse Resp BP Pulse Ox 98 F 80 20 154/85 H 97 08/23/16 07:24 08/23/16 07:48 08/23/16 07:24 08/23/16 09:06 08/23/16 07:24 Intake and Output: 08/23/16 08/23/16 06:59 18:59 Intake Total 1160 Balance 1160 - Medications Medications: Current Medications Carvedilol (Coreg) 12.5 mg PO BID [facility] Last Admin: 08/23/16 09:06 Dose: 12.5 mg Enoxaparin Sodium (Lovenox) 30 mg SC Q12 [facility] Last Admin: 08/23/16 09:07 Dose: 30 mg Finasteride (Proscar) 5 mg PO DAILY [facility] Last Admin: 08/23/16 09:11 Dose: 5 mg Hydromorphone HCl (Dilaudid) 0.5 mg IVP Q4H PRN PRN Reason: Pain, moderate (4-7) Last Admin: 08/22/16 18:31 Dose: 0.5 mg Insulin Aspart (Novolog) 0 unit SC ACHS [facility] PRN Reason: Protocol Last Admin: 08/23/16 09:11 Dose: 2 unit Levothyroxine Sodium (Synthroid) 50 mcg PO DAILY@0630 [facility] Last Admin: 08/23/16 05:49 Dose: 50 mcg Losartan Potassium (Cozaar) 50 mg PO DAILY PRN PRN Reason: Systolic Blood Pressure > 160 Nitroglycerin (Nitro-Dur 0.2 Mg/Hr Patch) 1 patch TD DAILY [facility] Last Admin: 08/23/16 09:11 Dose: 1 patch Ondansetron HCl (Zofran Inj) 4 mg IVP Q4 PRN PRN Reason: Nausea/Vomiting Pantoprazole Sodium (Protonix Inj) 40 mg IVP DAILY [facility] Last Admin: 08/23/16 09:05 Dose: 40 mg Fluticasone/Salmeterol (Advair Diskus 250/50) 1 puff INH RQ12 [facility] Last Admin: 08/23/16 07:47 Dose: 1 puff - Labs Labs: 08/21/16 11:31 08/22/16 11:34 PT 11.5 SECONDS (9.7-12.2) 08/20/16 00:15 INR 1.0 08/20/16 00:15 APTT 33 SECONDS (21-34) 08/20/16 00:15 - Constitutional Appears: No Acute Distress - Head Exam Head Exam: NORMOCEPHALIC - Neck Exam Neck Exam: Normal Inspection - Respiratory Exam Respiratory Exam: NORMAL BREATHING PATTERN - Cardiovascular Exam Cardiovascular Exam: REGULAR RHYTHM - GI/Abdominal Exam GI & Abdominal Exam: Soft, Hyperactive Bowel Sounds. absent: Tenderness Assessment and Plan (1) Intestinal obstruction Assessment & Plan: Clincally resolved Monitor Surgery follow up Status: Acute
[2016-08-23 12:58] LABS: CHLORIDE 99 mmol/L (98-107); SODIUM 132 mmol/L (132-148)
[2016-08-23 13:01] LABS: BLOOD UREA NITROGEN 8 mg/dL (9-20); CARBON DIOXIDE 23 mmol/L (22-30); GFR AFRICAN-AMERICAN > 60
[2016-08-23 13:02] LABS: CALCIUM 7.4 mg/dl (8.6-10.4); GLUCOSE,RANDOM 206 mg/dL (75-110)
[2016-08-23 13:06] LABS: POTASSIUM 2.9 mmol/L (3.6-5.2)
[2016-08-23] MEDS: Potassium Chloride 20 mEq/15 ml LIQ UD PO SCH ×2 (13:47→17:47)
--- NOTE | 2016-08-23 15:40 | CP.PCM.PN ---
Subjective - Date & Time of Evaluation Date of Evaluation: 08/23/16 Time of Evaluation: 15:37 - Subjective Subjective: S: Feels better. No abdominal pain. Appetite better. Objective - Vital Signs/Intake and Output Vital Signs (last 24 hours): Temp Pulse Resp BP Pulse Ox 98 F 80 20 154/85 H 97 08/23/16 07:24 08/23/16 07:48 08/23/16 07:24 08/23/16 09:06 08/23/16 07:24 Intake and Output: 08/23/16 08/23/16 06:59 18:59 Intake Total 1160 Balance 1160 - Medications Medications: Current Medications Carvedilol (Coreg) 12.5 mg PO BID [facility] Last Admin: 08/23/16 09:06 Dose: 12.5 mg Enoxaparin Sodium (Lovenox) 30 mg SC Q12 [facility] Last Admin: 08/23/16 09:07 Dose: 30 mg Finasteride (Proscar) 5 mg PO DAILY [facility] Last Admin: 08/23/16 09:11 Dose: 5 mg Hydromorphone HCl (Dilaudid) 0.5 mg IVP Q4H PRN PRN Reason: Pain, moderate (4-7) Last Admin: 08/22/16 18:31 Dose: 0.5 mg Insulin Aspart (Novolog) 0 unit SC ACHS [facility] PRN Reason: Protocol Last Admin: 08/23/16 12:59 Dose: 3 unit Levothyroxine Sodium (Synthroid) 50 mcg PO DAILY@0630 [facility] Last Admin: 08/23/16 05:49 Dose: 50 mcg Losartan Potassium (Cozaar) 50 mg PO DAILY PRN PRN Reason: Systolic Blood Pressure > 160 Nitroglycerin (Nitro-Dur 0.2 Mg/Hr Patch) 1 patch TD DAILY [facility] Last Admin: 08/23/16 09:11 Dose: 1 patch Ondansetron HCl (Zofran Inj) 4 mg IVP Q4 PRN PRN Reason: Nausea/Vomiting Pantoprazole Sodium (Protonix Inj) 40 mg IVP DAILY [facility] Last Admin: 08/23/16 09:05 Dose: 40 mg Potassium Chloride (Potassium Chloride Oral Soln) 40 meq PO Q4H [facility] Stop: 08/23/16 17:46 Last Admin: 08/23/16 13:47 Dose: 40 meq Fluticasone/Salmeterol (Advair Diskus 250/50) 1 puff INH RQ12 [facility] Last Admin: 08/23/16 07:47 Dose: 1 puff - Labs Labs: 08/21/16 11:31 08/23/16 12:07 PT 11.5 SECONDS (9.7-12.2) 08/20/16 00:15 INR 1.0 08/20/16 00:15 APTT 33 SECONDS (21-34) 08/20/16 00:15 - Constitutional Appears: Chronically Ill - Head Exam Head Exam: NORMAL INSPECTION - Neck Exam Neck Exam: Normal Inspection - Respiratory Exam Respiratory Exam: NORMAL BREATHING PATTERN - Cardiovascular Exam Cardiovascular Exam: REGULAR RHYTHM - GI/Abdominal Exam GI & Abdominal Exam: Soft (healed operative scars noted) - Rectal Exam Rectal Exam: Deferred - Extremities Exam Extremities Exam: absent: Pedal Edema Assessment and Plan (1) Intestinal obstruction Status: Resolved (2) CAD (coronary artery disease) Assessment & Plan: Better. Discharge home. Status: Chronic (3) HTN (hypertension) Status: Chronic (4) Diabetes Status: Resolved
--- NOTE | 2016-08-23 16:01 | CP.PCM.PN ---
Subjective - Date & Time of Evaluation Date of Evaluation: 08/23/16 Time of Evaluation: 16:01 - Subjective Subjective: Alert and orientedx3, NAD. Objective - Vital Signs/Intake and Output Vital Signs (last 24 hours): Temp Pulse Resp BP Pulse Ox 98 F 80 20 154/85 H 97 08/23/16 07:24 08/23/16 07:48 08/23/16 07:24 08/23/16 09:06 08/23/16 07:24 Intake and Output: 08/23/16 08/23/16 06:59 18:59 Intake Total 1160 Balance 1160 - Medications Medications: Current Medications Carvedilol (Coreg) 12.5 mg PO BID [facility] Last Admin: 08/23/16 09:06 Dose: 12.5 mg Enoxaparin Sodium (Lovenox) 30 mg SC Q12 [facility] Last Admin: 08/23/16 09:07 Dose: 30 mg Finasteride (Proscar) 5 mg PO DAILY [facility] Last Admin: 08/23/16 09:11 Dose: 5 mg Hydromorphone HCl (Dilaudid) 0.5 mg IVP Q4H PRN PRN Reason: Pain, moderate (4-7) Last Admin: 08/22/16 18:31 Dose: 0.5 mg Insulin Aspart (Novolog) 0 unit SC ACHS [facility] PRN Reason: Protocol Last Admin: 08/23/16 12:59 Dose: 3 unit Levothyroxine Sodium (Synthroid) 50 mcg PO DAILY@0630 [facility] Last Admin: 08/23/16 05:49 Dose: 50 mcg Losartan Potassium (Cozaar) 50 mg PO DAILY PRN PRN Reason: Systolic Blood Pressure > 160 Nitroglycerin (Nitro-Dur 0.2 Mg/Hr Patch) 1 patch TD DAILY [facility] Last Admin: 08/23/16 09:11 Dose: 1 patch Ondansetron HCl (Zofran Inj) 4 mg IVP Q4 PRN PRN Reason: Nausea/Vomiting Pantoprazole Sodium (Protonix Inj) 40 mg IVP DAILY [facility] Last Admin: 08/23/16 09:05 Dose: 40 mg Potassium Chloride (Potassium Chloride Oral Soln) 40 meq PO Q4H [facility] Stop: 08/23/16 17:46 Last Admin: 08/23/16 13:47 Dose: 40 meq Fluticasone/Salmeterol (Advair Diskus 250/50) 1 puff INH RQ12 [facility] Last Admin: 08/23/16 07:47 Dose: 1 puff - Labs Labs: 08/21/16 11:31 08/23/16 12:07 PT 11.5 SECONDS (9.7-12.2) 08/20/16 00:15 INR 1.0 08/20/16 00:15 APTT 33 SECONDS (21-34) 08/20/16 00:15 Assessment and Plan - Assessment and Plan (Free Text) Assessment: Patient is seen and examined. Alert and oriented x3, had one bowel movement today. Denies abdominal rocío, tolerating diet. potassium is 2.9 today, replaced with 40meq tabx2 today. Cleared by surgery and GI, discussed with DR Crump, plan to discharge home today. Advised to follow up in the office in 1 week.
[2016-08-23 17:14] VITALS: PULSE 87; TEMP 99.3; O2SAT 99
[2016-08-23 17:47] VITALS: BP 166/76
== END 2016-08-23 21:19 | disposition home or self-care (01) | DRG 395 ==
LOC: C.ER 22:24 → C.3T 08-20 02:51
PROVIDERS: ADMIT Internal Medicine; ATTEND Internal Medicine
DX: K43.6 Other and unspecified ventral hernia with obstruction, without gangrene (principal); E11.22 Type 2 diabetes mellitus with diabetic chronic kidney disease; K25.9 Gastric ulcer, unspecified as acute or chronic, without hemorrhage or perforation; Z95.1 Presence of aortocoronary bypass graft; J43.9 Emphysema, unspecified; I12.9 Hypertensive chronic kidney disease with stage 1 through stage 4 chronic kidney disease, or unspecified chronic kidney disease; N18.9 Chronic kidney disease, unspecified; E78.00 Pure hypercholesterolemia, unspecified; Z79.4 Long term (current) use of insulin; I25.10 Atherosclerotic heart disease of native coronary artery without angina pectoris; Z86.010 Personal history of colon polyps; E03.9 Hypothyroidism, unspecified